=== PATIENT | male | born 1940 | race Hispanic/Latino ===

== ENCOUNTER 2017-05-13 11:38 | Day surgery (SDC) | payer MEDICARE ==
[~2017-05-13 11:38] MED LIST: IOPIDINE ONE; MYDRIACYL ONE
[2017-05-13] MEDS ORDERED: IOPIDINE OS ONE (12:20)
[2017-05-13] MEDS ORDERED: PHENYLEPHRINE HCL OS ONE (12:20)
[2017-05-13] MEDS ORDERED: MYDRIACYL OS ONE (12:20)
[2017-05-13 14:15] VITALS: BP 134/60
== END 2017-05-13 13:44 | disposition home or self-care (01) ==
LOC: OR 11:38
PROVIDERS: ATTEND Specialist
DX: H26.492 Other secondary cataract, left eye (principal); Z88.0 Allergy status to penicillin; Z88.1 Allergy status to other antibiotic agents; Z88.6 Allergy status to analgesic agent; Z79.899 Other long term (current) drug therapy
CPT/HCPCS: 82962

== ENCOUNTER 2017-05-20 11:17 | Day surgery (SDC) | payer MEDICARE ==
[2017-05-20] MEDS ORDERED: IOPIDINE ONE (12:17)
[2017-05-20] MEDS ORDERED: MYDRIACYL ONE (12:17)
[2017-05-20] MEDS ORDERED: NEOFRIN ONE (12:17)
[2017-05-20] MEDS ORDERED: MYDRIACYL OD ONE (12:26)
[2017-05-20] MEDS ORDERED: IOPIDINE OU ONE (12:26)
[2017-05-20] MEDS ORDERED: NEOFRIN OD ONE (12:26)
[2017-05-20 12:44] VITALS: BP 142/50
== END 2017-05-20 11:18 | disposition home or self-care (01) ==
LOC: OR 11:17
PROVIDERS: ATTEND Specialist
DX: H26.491 Other secondary cataract, right eye (principal); Z79.899 Other long term (current) drug therapy
CPT/HCPCS: 82962